=== PATIENT | female | born 1970 | race Native Hawaiian/Other Pacific Islander ===

== ENCOUNTER 2020-11-20 14:45 | Emergency (ER) | payer OTHER ==
[~2020-11-20] VITALS: Ht 162.6 cm; Wt 106.1 kg
[~2020-11-20 14:45] MED LIST: ACET-689 PO; ALBUTEROL0.083 % IN; FLUT0.05 NAS; FURO40TA93 PO; LISITAB PO; MICRO-K10 MEQ OR; PROM25TA52 PO; RANI150T78 PO
[2020-11-20 14:46] VITALS: TEMP 98
[2020-11-20 15:34] LABS: PLATELET COUNT 339 K/uL (152-353)
[2020-11-20 15:40] LABS: POTASSIUM 4.1 mmol/L (3.6-5.2); SODIUM 138 mmol/L (136-145)
[2020-11-20 18:09] VITALS: BP 156/85
== END 2020-11-20 18:10 | disposition home or self-care (01) ==
LOC: ED 14:45
PROVIDERS: Emergency Medicine Emergency Medical Services
DX: I10 Essential (primary) hypertension (principal); R60.0 Localized edema; Z91.14 Patient's other noncompliance with medication regimen
CPT/HCPCS: 80048; 83735; 83880; 84484; 85027; 93005; 96374; 96375; 99284; J0360; J1940

== ENCOUNTER 2021-04-03 09:21 | Emergency (ER) | payer OTHER ==
[~2021-04-03] VITALS: Ht 162.6 cm; Wt 106.1 kg
[2021-04-03 09:26] VITALS: BP 171/85; TEMP 97
[2021-04-03 10:34] LABS: PLATELET COUNT 361 K/uL (152-353)
[2021-04-03 10:42] LABS: POTASSIUM 4.1 mmol/L (3.6-5.2)
== END 2021-04-03 12:15 | disposition home or self-care (01) ==
LOC: ED 09:21
PROVIDERS: Emergency Medicine
DX: J06.9 Acute upper respiratory infection, unspecified (principal); J01.80 Other acute sinusitis; Z20.822 Contact with and (suspected) exposure to COVID-19
CPT/HCPCS: 80053; 81000; 85027; 87502; 87635; 96372; 99283; J1885; U0003

== ENCOUNTER 2021-07-18 08:36 | Outpatient (CLI) | payer OTHER ==
[2021-07-18 09:00] LABS: PLATELET COUNT 364 K/uL (152-353)
[2021-07-18 09:19] LABS: POTASSIUM 3.5 mmol/L (3.6-5.2)
== END 2021-07-18 19:08 | disposition home or self-care (01) ==
LOC: LABW 08:36
PROVIDERS: ATTEND Family Medicine
DX: I10 Essential (primary) hypertension (principal); L40.9 Psoriasis, unspecified; I89.0 Lymphedema, not elsewhere classified; F41.9 Anxiety disorder, unspecified; E66.01 Morbid (severe) obesity due to excess calories; M10.9 Gout, unspecified; E55.9 Vitamin D deficiency, unspecified
CPT/HCPCS: 36415; 80053; 80061; 81000; 82306; 84443; 84550; 85027

== ENCOUNTER 2021-09-01 00:09 | Emergency (ER) | payer OTHER ==
[~2021-09-01] VITALS: Ht 162.6 cm; Wt 106.6 kg
[2021-09-01 03:20] VITALS: BP 131/75; TEMP 97.9
== END 2021-09-01 03:30 | disposition home or self-care (01) ==
LOC: ED 00:09
PROC: 0HQLXZZ Repair Left Lower Leg Skin, External Approach (ICD-10-PCS; principal; 2021-09-01)
DX: S81.812A Laceration without foreign body, left lower leg, initial encounter (principal); S80.12XA Contusion of left lower leg, initial encounter; W45.8XXA Other foreign body or object entering through skin, initial encounter; Y92.092 Bedroom in other non-institutional residence as the place of occurrence of the external cause
CPT/HCPCS: 90471; 90715; 99283

== ENCOUNTER 2021-09-13 10:30 | Outpatient (CLI) | payer OTHER | END 2021-09-13 21:11 | disposition home or self-care (01) | LOC: LABW 10:30 | PROVIDERS: ATTEND Family Medicine | DX: R73.9 Hyperglycemia, unspecified (principal) | CPT/HCPCS: 36415; 83036 ==

== ENCOUNTER 2021-09-20 23:24 | Emergency (ER) | payer OTHER ==
[~2021-09-20] VITALS: Ht 162.6 cm; Wt 123.4 kg
[2021-09-21 01:13] LABS: POTASSIUM 3.5 mmol/L (3.6-5.2)
[2021-09-21 01:17] LABS: PLATELET COUNT 325 K/uL (152-353)
[2021-09-21 03:53] VITALS: BP 128/69; TEMP 98.6
== END 2021-09-21 03:53 | disposition home or self-care (01) ==
LOC: ED 23:24
PROVIDERS: Emergency Medicine
DX: B34.9 Viral infection, unspecified (principal); U07.1 COVID-19
CPT/HCPCS: 36415; 80053; 84484; 85027; 87040; 87502; 87635; 93005; 94664; 96372; 99283; J1885; J2930; U0003

== ENCOUNTER 2022-03-23 17:08 | Emergency (ER) | payer OTHER ==
[~2022-03-23] VITALS: Ht 162.6 cm; Wt 123.4 kg
[2022-03-23 17:14] VITALS: TEMP 99.1
[2022-03-23 17:48] LABS: PLATELET COUNT 438 K/uL (152-353)
[2022-03-23 17:51] LABS: POTASSIUM 4.2 mmol/L (3.6-5.2)
[2022-03-23 19:00] VITALS: BP 136/84
== END 2022-03-23 19:03 | disposition home or self-care (01) ==
LOC: ED 17:08
PROVIDERS: Emergency Medicine
DX: B34.9 Viral infection, unspecified (principal); D72.828 Other elevated white blood cell count; J40 Bronchitis, not specified as acute or chronic; Z20.822 Contact with and (suspected) exposure to COVID-19
CPT/HCPCS: 36415; 80053; 81002; 85027; 87502; 87635; 96372; 99283; J1885; U0003

== ENCOUNTER 2022-04-28 10:55 | Emergency (ER) | payer OTHER ==
[~2022-04-28] VITALS: Ht 162.6 cm; Wt 128.4 kg
[2022-04-28 10:59] VITALS: BP 124/74; TEMP 99.6
[2022-04-28 11:59] LABS: PLATELET COUNT 651 K/uL (152-353)
[2022-04-28 12:15] LABS: POTASSIUM 3.3 mmol/L (3.6-5.2)
== END 2022-04-28 12:45 | disposition left against medical advice (07) ==
LOC: ED 10:55
PROVIDERS: Emergency Medicine Emergency Medical Services
DX: J18.9 Pneumonia, unspecified organism (principal); R06.09 Other forms of dyspnea; D64.89 Other specified anemias; Z20.822 Contact with and (suspected) exposure to COVID-19; Z53.29 Procedure and treatment not carried out because of patient's decision for other reasons; F17.210 Nicotine dependence, cigarettes, uncomplicated
CPT/HCPCS: 36415; 36600; 80053; 82272; 82805; 83605; 83735; 83880; 84484; 85027; 85379; 85730; 86850; 86900; 86901; 87040; 87502; 87635; 93005; 94664; 96361; 96365; 99285; J0696; U0003